=== PATIENT | male | born 1965 | race Caucasian/White ===

== ENCOUNTER 2017-03-29 19:03 | Inpatient (IN) | payer OTHER, MEDICAID ==
[~2017-03-29] VITALS: Ht 180.3 cm; Wt 73.0 kg
[2017-03-29] MEDS ORDERED: FAMOTIDINE/PF INJ 20 MG/2 ML VIAL IV ONE ×2 (19:30→19:48)
[2017-03-29] MEDS ORDERED: IV NS 0.9% 1,000 ML BAG IV ONE (19:30)
[2017-03-29] MEDS ORDERED: MORPHINE SULFATE INJ 2 MG/ML DISP.SYRIN IV ONE ×2 (19:30→21:00)
[2017-03-29] MEDS ORDERED: ONDANSETRON HCL/PF 4 MG/2 ML VIAL IVP ONE (19:30)
[2017-03-29] MEDS ORDERED: MORPHINE SULFATE INJ 2 MG/ML DISP.SYRIN ONE ×3 (19:47→23:48)
[2017-03-29] MEDS ORDERED: ONDANSETRON HCL/PF 4 MG/2 ML VIAL ONE (19:47)
--- NOTE | 2017-03-29 19:50 | NUR ---
RAC 20G IV STARTED. BLOOD DRAWN FOR LABS.
[2017-03-29 19:51] LABS: BASOPHILS % (AUTO) 0.5 % (0.0-2.0); EOSINOPHILS # (AUTO) 0.3 /CMM (0.0-0.7); EOSINOPHILS % (AUTO) 4.1 % (0.0-6.0); HEMATOCRIT 41 % (39-51); HEMOGLOBIN 13.8 g/dL (13.5-17.5); LYMPHOCYTES # (AUTO) 1.6 /CMM (0.8-4.8); LYMPHOCYTES % (AUTO) 23.6 % (20.0-44.0); MEAN CORPUSCULAR HEMOGLOBIN 34 PG (26.0-33.0); MEAN CORPUSCULAR HGB CONC 34 g/dl (31.0-36.0); MEAN CORPUSCULAR VOLUME 100 fL (80-96); MONOCYTES # (AUTO) 0.6 /CMM (0.1-1.30); MONOCYTES % (AUTO) 8.6 % (2.0-12.0); NEUTROPHILS # (AUTO) 4.2 /CMM (1.8-8.9); NEUTROPHILS % (AUTO) 63.2 % (43.0-81.0); PLATELET COUNT (AUTO) 159 /CMM (150-450); RDW COEFFICIENT OF VARIATION 13.2 (11.5-15.0); WHITE BLOOD COUNT (AUTO) 6.7 K/uL (4.3-11.0)
--- NOTE | 2017-03-29 19:53 | NUR ---
MORPHINE, PEPCID AND ZOFRAN AND 1000ML BOLUS GIVEN.
[2017-03-29 19:58] LABS: CALCIUM, SERUM 9.8 mg/dL (8.5-10.1); CARBON DIOXIDE 25 mmol/L (21-32); CHLORIDE 101 mmol/L (98-107); CREATININE 1.2 mg/dL (0.6-1.3); GLUCOSE 138 mg/dL (74-106); POTASSIUM 3.2 mmol/L (3.5-5.1); SODIUM SERUM 138 mmol/L (136-145); UREA NITROGEN, BLOOD 14 mg/dL (7-18)
[2017-03-29 20:02] LABS: INR 0.89 (0.87-1.13); PROTHROMBIN TIME 9.2 SECS (9.5-12.7)
[2017-03-29 20:05] LABS: ALANINE AMINOTRANSFERASE 177 U/L (12-78); ALBUMIN 4.1 g/dL (3.4-5.0); ALKALINE PHOSPHATASE 65 U/L (46-116); ASPARTATE AMINOTRANSFERASE 198 U/L (15-37); BILIRUBIN,DIRECT 0.2 mg/dL (0.0-0.2); BILIRUBIN,TOTAL 0.6 mg/dL (0.2-1.0); LIPASE 6430 U/L (73-393); TOTAL PROTEIN, SERUM 7.5 g/dL (6.4-8.2)
[2017-03-29 20:06] LABS: TROPONIN I < 0.017 ng/mL (0.00-0.056)
--- NOTE | 2017-03-29 20:33 | NUR ---
PT RETURNED FROM CT.
--- NOTE | 2017-03-29 20:37 | NUR ---
PT C/O OF 9/10 ABDOMINAL PAIN. LAST PAIN MEDS WERE NOT EFFECTIVE. PT GIVEN 4MG MORPHINE IVP.
--- NOTE | 2017-03-29 20:44 | NUR ---
CALLED [facility] ITS DR. ZHAO
[2017-03-29] MEDS ORDERED: POTASSIUM CL. PREMIX PERIPHER. 50 ML ONE (21:04)
[2017-03-29] MEDS: POTASSIUM CL. PREMIX PERIPHER. 50 ML IV SCH (21:09)
--- NOTE | 2017-03-29 21:10 | NUR ---
KCL IVPB GIVEN PER MD ORDERS. KCL INFUSING RIGHT AC 20G. PATIENT WILL BE ADMITTED TO ROOM 304-1.
[2017-03-29] MEDS ORDERED: IV D5/0.45 NACL 1,000 ML IV PRN (21:25)
[2017-03-29] MEDS ORDERED: ENAL1TAB10 PO (21:27)
[2017-03-29] MEDS ORDERED: OMEP10CA4 PO (21:27)
[2017-03-29] MEDS ORDERED: ALPR1TAB2 PO (21:27)
[2017-03-29] MEDS ORDERED: ZOLPIDEM TARTRATE 5 MG TABLET PO PRN ×2 (21:30→21:45)
[2017-03-29] MEDS ORDERED: LORAZEPAM INJ 2 MG/ML VIAL IV PRN ×2 (21:30→21:45)
[2017-03-29] MEDS ORDERED: ACETAMINOPHEN 325 MG TABLET PO PRN ×2 (21:30→21:45)
[2017-03-29] MEDS ORDERED: MORPHINE SULFATE INJ 2 MG/ML DISP.SYRIN IV PRN (21:30)
[2017-03-29] MEDS ORDERED: PANTOPRAZOLE 40 MG TABLET.DR PO SCH ×2 (21:30→21:45)
[2017-03-29] MEDS ORDERED: Thiamine 100 MG in IV D5W 50 ML IV SCH ×2 (21:30→21:45)
[2017-03-29] MEDS ORDERED: Z GUARD REMEDY 2 OZ OINT TP PRN ×2 (21:30→21:45)
[2017-03-29] MEDS ORDERED: HYDROCODONE/APAP 5/325MG 1 EACH TABLET PO PRN ×2 (21:30→21:45)
[2017-03-29] MEDS ORDERED: MAG HYDROX/AL HYDROX/SIMETH 30 ML UDC PO PRN ×2 (21:30→21:45)
[2017-03-29] MEDS ORDERED: ENOXAPARIN SODIUM 40 MG/0.4 ML DISP.SYRIN SQ SCH ×2 (21:30→21:45)
[2017-03-29] MEDS ORDERED: MAGNESIUM HYDROXIDE 30 ML UDC PO PRN ×2 (21:30→21:45)
[2017-03-29] MEDS ORDERED: ONDANSETRON HCL/PF 4 MG/2 ML VIAL IVP PRN ×2 (21:30→21:45)
[2017-03-29] MEDS ORDERED: Folic acid 1 MG in IV D5W 50 ML IV SCH ×2 (21:30→21:45)
--- NOTE | 2017-03-29 21:44 | NUR ---
TELE/RN RECEIVE PATIENT FROM [facility], PATIENT IS AWAKE, ALERT, ORIENTED, COMFORTABLE, C/O MILD, TOLERABLE ABDOMINAL PAIN , PATIENT DOES NOT WANT PAIN MEDICATION AT THIS TIME. ADMISSION DONE PER PROTOCOL. PATIENT REFUSED SKIN ASSESSMENT. PLAN OF CARE DISCUSSED, VERBALIZED UNDERSTANDING. TAUGHT THE USE OF CALL LIGHT, VERBALIZED UNDERSTANDING. WILL MONITOR.
[2017-03-29 22:00] VITALS: BP 109/69
[2017-03-29] MEDS: IV D5/0.45 NACL 1,000 ML IV PRN (23:36)
[2017-03-29] MEDS ORDERED: PANTOPRAZOLE 40 MG TABLET.DR PO ONE (23:46)
[2017-03-29] MEDS ORDERED: ENOXAPARIN SODIUM 40 MG/0.4 ML DISP.SYRIN SQ ONE (23:47)
[2017-03-30] MEDS: MORPHINE SULFATE INJ 2 MG/ML DISP.SYRIN IV PRN ×2 (00:03→08:10)
[2017-03-30] MEDS: POTASSIUM CL. PREMIX PERIPHER. 50 ML IV SCH ×3 (00:09→02:17)
[2017-03-30 00:10] VITALS: BP 115/73
[2017-03-30] MEDS ORDERED: Folic acid 1 MG/0.2 ML VIAL ONE (00:41)
[2017-03-30] MEDS ORDERED: Thiamine 100 MG/ML VIAL ONE (00:41)
[2017-03-30] MEDS ORDERED: LORAZEPAM INJ 2 MG/ML VIAL ONE (02:12)
--- NOTE | 2017-03-30 02:17 | NUR ---
TELE/RN AGITATION NOTED DUE TO NOT ABLE TO SLEEP, ATIVAN 0.5 MG IVP WAS GIVEN ORDERED. WILL MONITOR.
--- NOTE | 2017-03-30 02:37 | NUR ---
TELE/RN PATIENT IS DOZING INTERMITTENTLY, NO SIGNS OF DISTRESS NOTED. WILL CONTINUE TO MONITOR.
[2017-03-30 03:54] VITALS: BP 109/71
--- NOTE | 2017-03-30 06:49 | NUR ---
TELE/RN SLEEPING, AROUSABLE, APPEAR COMFORTABLE, NO SIGNS OF DISTRESS NOTED, CALL LIGHT IN REACH. ALL NEEDS ATTENDED AT THIS TIME. WILL CONTINUE TO MONITOR.
[2017-03-30 06:52] VITALS: BP 121/83
[2017-03-30] MEDS ORDERED: AMLO5TAB2 PO (07:19)
[2017-03-30] MEDS ORDERED: ATOR10TA PO (07:19)
[2017-03-30] MEDS ORDERED: OMEP20CA10 PO (07:19)
[2017-03-30] MEDS ORDERED: PANTOPRAZOLE 40 MG TABLET.DR PO SCH ×2 (07:30→08:38)
[2017-03-30] MEDS: PANTOPRAZOLE 40 MG TABLET.DR PO SCH (07:30)
[2017-03-30 08:00] VITALS: BP 117/87
--- NOTE | 2017-03-30 08:00 | NUR ---
AUTO LEASING MANAGER PT ALERT AND ORIENTED. RESTING COMFORTABLY. CALL LIGHT WITHIN REACH. BED IN LOW LOCK POSITION. IV RIGHT AC INTACT PATENT. WILL CONTINUE TO MONITOR.
[2017-03-30] MEDS: IV D5/0.45 NACL 1,000 ML IV PRN ×3 (08:05→23:19)
[2017-03-30] MEDS: ALPRAZOLAM 1 MG TABLET PO SCH (09:00)
[2017-03-30] MEDS ORDERED: [UNRECOGNIZED DRUG - OTHER] PO SCH (09:00)
[2017-03-30] MEDS: HYDROCHLOROTHIAZIDE 25 MG TABLET PO SCH (09:00)
[2017-03-30] MEDS ORDERED: HYDROCHLOROTHIAZIDE PO SCH (09:00)
[2017-03-30] MEDS ORDERED: ENALAPRIL PO SCH (09:00)
[2017-03-30] MEDS: ENALAPRIL MALEATE (10 MG) 10 MG TABLET PO SCH (09:00)
[2017-03-30 09:21] LABS: BASOPHILS % (AUTO) 0.3 % (0.0-2.0); EOSINOPHILS # (AUTO) 0.2 /CMM (0.0-0.7); EOSINOPHILS % (AUTO) 3.6 % (0.0-6.0); HEMATOCRIT 35 % (39-51); HEMOGLOBIN 11.5 g/dL (13.5-17.5); LYMPHOCYTES # (AUTO) 1.3 /CMM (0.8-4.8); LYMPHOCYTES % (AUTO) 27.3 % (20.0-44.0); MEAN CORPUSCULAR HEMOGLOBIN 34 PG (26.0-33.0); MEAN CORPUSCULAR HGB CONC 33 g/dl (31.0-36.0); MEAN CORPUSCULAR VOLUME 101 fL (80-96); MONOCYTES # (AUTO) 0.3 /CMM (0.1-1.30); MONOCYTES % (AUTO) 6.2 % (2.0-12.0); NEUTROPHILS # (AUTO) 2.9 /CMM (1.8-8.9); NEUTROPHILS % (AUTO) 62.6 % (43.0-81.0); RDW COEFFICIENT OF VARIATION 13.1 (11.5-15.0); RED BLOOD CELL COUNT(AUTO) 3.41 MIL/uL (4.5-6.0); WHITE BLOOD COUNT (AUTO) 4.6 K/uL (4.3-11.0)
[2017-03-30 09:38] LABS: CREATININE 0.9 mg/dL (0.6-1.3); POTASSIUM 3.8 mmol/L (3.5-5.1)
[2017-03-30 09:54] LABS: PLATELET COUNT (AUTO) 110 /CMM (150-450)
[2017-03-30 10:56] LABS: ALBUMIN 3.6 g/dL (3.4-5.0); BILIRUBIN,DIRECT 0.1 mg/dL (0.0-0.2); BILIRUBIN,TOTAL 0.8 mg/dL (0.2-1.0); TOTAL PROTEIN, SERUM 6.5 g/dL (6.4-8.2)
--- NOTE | 2017-03-30 11:00 | NUR ---
CONTINUOUS IMPROVEMENT INTERN NOTES PATIENT REFUSED ECHOCARDIOGRAM STATING HE HAD ONE RECENTLY AT HIS DOCTORS OFFICE. HE STATES RESULTS WERE NORMAL.
[2017-03-30] MEDS ORDERED: LORAZEPAM INJ 2 MG/ML VIAL IV PRN (15:30)
--- NOTE | 2017-03-30 19:20 | NUR ---
DATA MANAGER NOTES PATIENT IN BED RESTING NO SOB OR ACUTE DISTRESS NOTED. ALL DUE MEDICATIONS ADMINISTERED, ALL NEEDS MET. PERIPHERAL IV ON RIGHT AC INTACT PATENT. PATIENT DENIES ANY PAIN. TOLERATED CLEAR LIQUID DIET WELL. WILL ENDORSE TO PM SHIFT BELA.
--- NOTE | 2017-03-30 19:30 | NUR ---
PURCHASING AGENT OPENING NOTES: PATIENT IN BED, AOX4, ON ROOM AIR, BREATHING EVEN AND UNLABORED. BREATH SOUNDS LEAR TO AUSCULTATION. ON TELE MONITORING : SR AT RATE OF 70S. PIV OVER RAC G20 INTACT AND INFUSING WELL WITH D51/2 NS RUNNING AT 150 ML/HR. PROVIDED FOR COMFORT AND SAFETY. BED IN LOWEST AND LOCKED POSITION, SIDERAILS UPX3. WILL CONT TO MONITOR.
[2017-03-30 20:00] VITALS: BP 155/89
[2017-03-30 20:07] VITALS: BP 155/89
[2017-03-30] MEDS ORDERED: ENOXAPARIN SODIUM 40 MG/0.4 ML DISP.SYRIN SQ SCH (22:00)
[2017-03-31] VITALS: BP 134/91
[2017-03-31 04:00] VITALS: BP 127/90
[2017-03-31] MEDS ORDERED: Thiamine 100 MG in IV D5W 50 ML IV SCH (05:00)
[2017-03-31] MEDS ORDERED: Folic acid 1 MG in IV D5W 50 ML IV SCH (06:00)
[2017-03-31 06:26] LABS: BASOPHILS % (AUTO) 0.3 % (0.0-2.0); EOSINOPHILS # (AUTO) 0.2 /CMM (0.0-0.7); EOSINOPHILS % (AUTO) 4.3 % (0.0-6.0); HEMATOCRIT 36 % (39-51); HEMOGLOBIN 12.1 g/dL (13.5-17.5); LYMPHOCYTES # (AUTO) 0.8 /CMM (0.8-4.8); LYMPHOCYTES % (AUTO) 17.6 % (20.0-44.0); MEAN CORPUSCULAR HEMOGLOBIN 34 PG (26.0-33.0); MEAN CORPUSCULAR HGB CONC 34 g/dl (31.0-36.0); MEAN CORPUSCULAR VOLUME 100 fL (80-96); MONOCYTES # (AUTO) 0.2 /CMM (0.1-1.30); MONOCYTES % (AUTO) 4.4 % (2.0-12.0); NEUTROPHILS # (AUTO) 3.2 /CMM (1.8-8.9); NEUTROPHILS % (AUTO) 73.4 % (43.0-81.0); PLATELET COUNT (AUTO) 93 /CMM (150-450); RDW COEFFICIENT OF VARIATION 12.8 (11.5-15.0); WHITE BLOOD COUNT (AUTO) 4.4 K/uL (4.3-11.0)
[2017-03-31 06:56] LABS: ALBUMIN 3.5 g/dL (3.4-5.0); BILIRUBIN,DIRECT 0.3 mg/dL (0.0-0.2); BILIRUBIN,TOTAL 1.4 mg/dL (0.2-1.0); CALCIUM, SERUM 9.6 mg/dL (8.5-10.1); CREATININE 0.7 mg/dL (0.6-1.3); POTASSIUM 3.7 mmol/L (3.5-5.1); TOTAL PROTEIN, SERUM 6.7 g/dL (6.4-8.2)
--- NOTE | 2017-03-31 07:00 | NUR ---
SESSIONS CLERK CLOSING NOTES: PATIENT IN BED, AOX4, ON ROOM AIR, BREATHING EVEN AND UNLABORED. PIV OVER RAC G20 INTACT AND PATENT, INFUSING WELL WITH D51/2 NS RUNNING AT 150 ML/HR. APPEARS CALM AND IN NO DISTRESS. NO ACUTE CHANGE IN CONDITION NOTED THROUGH SHIFT. DUE MEDS GIVEN. PROVIDED FOR COMFORT AND SAFETY. ENDORSED TO AM RN FOR BELA.
--- NOTE | 2017-03-31 07:30 | NUR ---
RN NOTES RECEIVED PT. PT IN BED RESTING. A/OX4. NO S/S OF DISTRESS OR SOB. NO C/O PAIN AT THIS TIME. PT IS ON ROOM AIR, O2 SAT ABOVE 95%. TELE MONITOR READING SR CURRENTLY. PT IS ON A CLEAR LIQUID DIET. SAFETY MEASURES IN PLACE, CALL LIGHT WITHIN REACH. WILL CONTINUE TO MONITOR.
[2017-03-31 08:06] VITALS: BP 121/88
[2017-03-31] MEDS: ENALAPRIL MALEATE (10 MG) 10 MG TABLET PO SCH (09:00)
[2017-03-31] MEDS: ALPRAZOLAM 1 MG TABLET PO SCH (09:17)
[2017-03-31 09:18] VITALS: BP 121/88
[2017-03-31] MEDS: PANTOPRAZOLE 40 MG TABLET.DR PO SCH (09:18)
[2017-03-31] MEDS: HYDROCHLOROTHIAZIDE 25 MG TABLET PO SCH (09:18)
[2017-03-31 10:15] LABS: BAND % (MANUAL) 1 % (0.0-5.0); EOSINOPHILS % (MANUAL) 1 % (0-4); LYMPHOCYTES % (MANUAL) 18 % (16-48); MONOCYTES % (MANUAL) 3 % (0-11.0); NEUTROPHILS % (MANUAL) 77 (42-76)
--- NOTE | 2017-03-31 11:48 | NUR ---
DISCHARGE NOTE PT LEFT AGAINST MEDICAL ADVICE. PT SPOKE WITH BRANDON REN REGARDING HEALTH RISKS ASSOCIATED WITH LEAVING AMA. PT VERBALIZES UNDERSTANDING OF RISKS HOWEVER HAS STILL DECIDED TO LEAVE. PT IS STABLE AT THE MOMENT, NO S/S OF RESPIRATORY DISTRESS OR SOB. PT IS ABLE TO AMBULATE WELL WITHOUT ASSISTANCE, DENIES ANY PRESENCE OF DIZZYNESS OR WEAKNESS. AMA FORM SIGNED AND COPIED, BELONGINGS LIST SIGNED AND COPIED. PT LEFT HOSPITAL BY HIMSELF, IN A PRIVATE CAR.
== END 2017-03-31 11:45 | disposition left against medical advice (07) | DRG 440 ==
LOC: ER 19:05 → MED 22:23 → TELE 23:26
PROVIDERS: ADMIT Internal Medicine; ATTEND Internal Medicine
DX: K85.20 Alcohol induced acute pancreatitis without necrosis or infection (principal); I10 Essential (primary) hypertension; K21.9 Gastro-esophageal reflux disease without esophagitis; F41.9 Anxiety disorder, unspecified; E87.6 Hypokalemia; F10.20 Alcohol dependence, uncomplicated; Y90.6 Blood alcohol level of 120-199 mg/100 ml; K80.20 Calculus of gallbladder without cholecystitis without obstruction; F17.210 Nicotine dependence, cigarettes, uncomplicated; R74.0 Nonspecific elevation of levels of transaminase and lactic acid dehydrogenase [LDH]; E80.6 Other disorders of bilirubin metabolism
CPT/HCPCS: 36415; 71010-TC; 71250-TC; 76705-TC; 80048-TC; 80076-TC; 82553-TC; 83690-TC; 84484-TC; 85025-TC; 85730-TC; 87081-TC; A4606; G0480; J1650; J2060; J2270; J2405; J3411; J3480; J3490; J7030; J7060; Z7610

== ENCOUNTER 2018-01-08 11:16 | Emergency (ER) | payer OTHER ==
[~2018-01-08] VITALS: Ht 182.9 cm; Wt 81.6 kg
[~2018-01-08 11:16] MED LIST: ALPR1TAB2 PO; AMLO5TAB7 PO; ATOR10TA PO; ENAL1TAB10 PO; OMEP20CA10 PO
--- NOTE | 2018-01-08 11:20 | NUR ---
Presents to ER c/o n/v/d x 2 days. a/ox 4. breathing even and unlabored. no sob, nad, vitals stable. safety and comfort measures in place. awaiting md orders.
[2018-01-08] MEDS ORDERED: IV NS 0.9% 1,000 ML BAG IV ONE (12:00)
[2018-01-08] MEDS ORDERED: ONDANSETRON HCL/PF 4 MG/2 ML VIAL IVP ONE (12:00)
[2018-01-08] MEDS ORDERED: ONDANSETRON HCL/PF 4 MG/2 ML VIAL ONE (12:04)
--- NOTE | 2018-01-08 12:10 | NUR ---
NEW IV STARTED ON RAC, 18G. BLOOD DRAWN AND SENT TO LAB.
[2018-01-08 12:13] LABS: BASOPHILS % (AUTO) 0.7 % (0.0-2.0); HEMATOCRIT 37 % (39-51); HEMOGLOBIN 12.7 g/dL (13.5-17.5); LYMPHOCYTES # (AUTO) 0.8 /CMM (0.8-4.8); LYMPHOCYTES % (AUTO) 25.4 % (20.0-44.0); MEAN CORPUSCULAR HGB CONC 34 g/dl (31.0-36.0); MEAN CORPUSCULAR VOLUME 101 fL (80-96); MONOCYTES # (AUTO) 0.3 /CMM (0.1-1.30); MONOCYTES % (AUTO) 10.9 % (2.0-12.0); PLATELET COUNT (AUTO) 116 /CMM (150-450); RDW COEFFICIENT OF VARIATION 13.1 (11.5-15.0); RED BLOOD CELL COUNT(AUTO) 3.68 MIL/uL (4.5-6.0); WHITE BLOOD COUNT (AUTO) 3.2 K/uL (4.3-11.0)
[2018-01-08 12:21] LABS: CALCIUM, SERUM 8.9 mg/dL (8.5-10.1); CREATININE 0.8 mg/dL (0.6-1.3); POTASSIUM 3.2 mmol/L (3.5-5.1)
[2018-01-08 12:27] LABS: ALBUMIN 3.5 g/dL (3.4-5.0); BILIRUBIN,DIRECT 0.5 mg/dL (0.0-0.2); BILIRUBIN,TOTAL 1.4 mg/dL (0.2-1.0); TOTAL PROTEIN, SERUM 6.8 g/dL (6.4-8.2)
--- NOTE | 2018-01-08 12:32 | NUR ---
URINE OBTAINED AND SENT TO LAB.
[2018-01-08 12:37] LABS: APPEARANCE,URINE Slightly Cloudy (CLEAR); BILIRUBIN,URINE MODERATE (NEGATIVE); BLOOD, URINE Trace-lysed Ery/uL (NEGATIVE); KETONES,URINE 40 (NEGATIVE); LEUKOCYTE ESTERASE ,URINE Negative (NEGATIVE); NITRITE, URINE Negative (NEGATIVE); PROTEIN,URINE 30 mg/dl (NEGATIVE); UGLUCOSE Negative (NEGATIVE)
--- NOTE | 2018-01-08 12:38 | NUR ---
CALLED FOR FOOD TRAY
[2018-01-08 12:44] LABS: COLOR,URINE Dark Yellow (YELLOW)
[2018-01-08 12:46] LABS: BACTERIA,URINE None seen /HPF (None Seen); MUCUS,URINE Moderate /LPF (None Seen); SQUAMOUS EPITHELIAL CELL,UR Few /HPF (None Seen)
[2018-01-08] MEDS ORDERED: POTASSIUM CHLORIDE 20 MEQ TAB.PRT.SR PO ONE ×2 (13:00→13:01)
[2018-01-08 13:34] VITALS: BP 158/92
--- NOTE | 2018-01-08 13:36 | NUR ---
IV removed. Catheter intact and site benign. Pressure and 4x4 applied to site. No bleeding noted. Patient discharged to home in stable condition. Written and verbal after care instructions given. Patient verbalizes understanding of instruction.
== END 2018-01-08 13:35 | disposition home or self-care (01) ==
LOC: ER 11:17
DX: R11.2 Nausea with vomiting, unspecified (principal); R10.9 Unspecified abdominal pain; R19.7 Diarrhea, unspecified; E87.6 Hypokalemia; I10 Essential (primary) hypertension; F41.9 Anxiety disorder, unspecified; E86.0 Dehydration; F17.200 Nicotine dependence, unspecified, uncomplicated; F10.10 Alcohol abuse, uncomplicated; Y90.9 Presence of alcohol in blood, level not specified
CPT/HCPCS: 36415; 80048; 80076; 81001; 83690; 85025; 96361; 96374; 99284; A4606; J2405; J7030; Z7610; 81000-TC

== ENCOUNTER 2018-02-24 09:56 | Emergency (ER) | payer OTHER ==
[~2018-02-24] VITALS: Ht 180.3 cm; Wt 81.6 kg
[~2018-02-24 09:56] MED LIST changes: +AMLO5TAB2 PO; -AMLO5TAB7 PO
--- NOTE | 2018-02-24 10:03 | NUR ---
PT AMBULATORY TO ER BED 03. PT IS C/O LLQ ABDOMINAL PAIN W/ NAUSEA X 5 DAYS NOW. PT GOWNED AND PLACED ON MONITOR. AFEBRILE BIOINFORMATICS TECHNICIAN. AWAITING MD STEINBERG.
--- NOTE | 2018-02-24 10:06 | NUR ---
DR CATALAN AT BEDSIDE FOR EVAL.
[2018-02-24] MEDS ORDERED: ONDANSETRON HCL/PF 4 MG/2 ML VIAL ONE ×2 (10:10→10:28)
[2018-02-24] MEDS ORDERED: MORPHINE SULFATE INJ 2 MG/ML DISP.SYRIN ONE ×2 (10:10→10:28)
--- NOTE | 2018-02-24 10:24 | NUR ---
Line started on R AC G 18, blood drawn from line and sent to lab Pt medicated as ordered by dr Darden
[2018-02-24] MEDS ORDERED: ONDANSETRON HCL/PF 4 MG/2 ML VIAL IVP ONE (10:30)
[2018-02-24] MEDS ORDERED: IV NS 0.9% 1,000 ML BAG IV ONE (10:30)
[2018-02-24] MEDS ORDERED: MORPHINE SULFATE INJ 2 MG/ML DISP.SYRIN IV ONE (10:30)
[2018-02-24 10:48] LABS: CREATININE 0.8 mg/dL (0.6-1.3)
--- NOTE | 2018-02-24 10:49 | NUR ---
PT TO RADIOLOGY FOR ABDOMINAL CT SCAN VIA WHEELCHAIR.
[2018-02-24 10:51] LABS: BASOPHILS % (AUTO) 0.8 % (0.0-2.0); EOSINOPHILS % (AUTO) 3.1 % (0.0-6.0); HEMATOCRIT 40 % (39-51); HEMOGLOBIN 13.5 g/dL (13.5-17.5); LYMPHOCYTES # (AUTO) 0.3 /CMM (0.8-4.8); MEAN CORPUSCULAR HEMOGLOBIN 34 PG (26.0-33.0); MEAN CORPUSCULAR HGB CONC 34 g/dl (31.0-36.0); MEAN CORPUSCULAR VOLUME 100 fL (80-96); MONOCYTES # (AUTO) 0.4 /CMM (0.1-1.30); MONOCYTES % (AUTO) 12.2 % (2.0-12.0); NEUTROPHILS # (AUTO) 2.1 /CMM (1.8-8.9); NEUTROPHILS % (AUTO) 72.9 % (43.0-81.0); RDW COEFFICIENT OF VARIATION 13.6 (11.5-15.0); RED BLOOD CELL COUNT(AUTO) 3.99 MIL/uL (4.5-6.0); WHITE BLOOD COUNT (AUTO) 2.9 K/uL (4.3-11.0)
[2018-02-24 10:52] LABS: PLATELET COUNT (AUTO) 63 /CMM (150-450)
[2018-02-24 10:55] LABS: ALBUMIN 3.6 g/dL (3.4-5.0); BILIRUBIN,DIRECT 0.6 mg/dL (0.0-0.2); BILIRUBIN,TOTAL 1.9 mg/dL (0.2-1.0); TOTAL PROTEIN, SERUM 7.3 g/dL (6.4-8.2)
[2018-02-24 10:56] LABS: INR 1.04 (0.85-1.15)
[2018-02-24 11:24] LABS: BAND % (MANUAL) 1 % (0.0-5.0); EOSINOPHILS % (MANUAL) 5 % (0-4); LYMPHOCYTES % (MANUAL) 12 % (16-48); MONOCYTES % (MANUAL) 12 % (0-11.0); NEUTROPHILS % (MANUAL) 70 (42-76)
[2018-02-24] MEDS ORDERED: PIPERACILLIN /TAZOBACTAM 3.375 G in IV D5W 50 ML IV ONE (11:30)
--- NOTE | 2018-02-24 11:57 | NUR ---
Patient discharged to home in stable condition. Written and verbal after care instructions given. Patient verbalizes understanding of instruction.IV removed. Catheter intact and site benign. Pressure and 4x4 applied to site. No bleeding noted.
[2018-02-24 11:58] VITALS: BP 138/84
== END 2018-02-24 11:59 | disposition home or self-care (01) ==
LOC: ER 09:57
DX: K57.92 Diverticulitis of intestine, part unspecified, without perforation or abscess without bleeding (principal); I10 Essential (primary) hypertension; F41.9 Anxiety disorder, unspecified; F17.200 Nicotine dependence, unspecified, uncomplicated; Z79.899 Other long term (current) drug therapy
CPT/HCPCS: 36415; 74176; 80048; 80076; 83690; 85025; 85730; 96361; 96365; 96375; 99285; A4606; J2270; J2405; J2543; J7030 ×2; J7060; Z7610

== ENCOUNTER 2018-10-15 02:23 | Emergency (ER) | payer MEDICAID, OTHER ==
[~2018-10-15] VITALS: Ht 182.9 cm; Wt 81.6 kg
[~2018-10-15 02:23] MED LIST changes: -AMLO5TAB2 PO; +AMLO5TAB9 PO
--- NOTE | 2018-10-15 02:30 | NUR ---
PT BIBS. C/O "HAVING SHORTNESS OF BREATH, AND CHEST PAIN EVER SINCE I FELL 3 DAYS AGO" PAIN NON RADIATING. PT AOX4. AMBULATORY W,STEADY GAIT. -ACUTE DISTRESS AT THIS TIME.
[2018-10-15] MEDS ORDERED: LORAZEPAM INJ 2 MG/ML VIAL ONE (02:48)
[2018-10-15] MEDS ORDERED: LORAZEPAM INJ 2 MG/ML VIAL IV ONE (03:00)
[2018-10-15] MEDS ORDERED: IV NS 0.9% 1,000 ML BAG IV ONE (03:00)
[2018-10-15 03:12] LABS: CARBON DIOXIDE 30 mmol/L (21-32); CHLORIDE 101 mmol/L (98-107); CREATININE 0.9 mg/dL (0.6-1.3); EOSINOPHILS % (AUTO) 3.3 % (0.0-6.0); GLUCOSE 88 mg/dL (74-106); HEMATOCRIT 39 % (39-51); HEMOGLOBIN 13.4 g/dL (13.5-17.5); LYMPHOCYTES # (AUTO) 0.6 /CMM (0.8-4.8); LYMPHOCYTES % (AUTO) 16.8 % (20.0-44.0); MEAN CORPUSCULAR HGB CONC 34 g/dl (31.0-36.0); MEAN CORPUSCULAR VOLUME 103 fL (80-96); MONOCYTES # (AUTO) 0.3 /CMM (0.1-1.30); MONOCYTES % (AUTO) 8.8 % (2.0-12.0); NEUTROPHILS # (AUTO) 2.6 /CMM (1.8-8.9); NEUTROPHILS % (AUTO) 70.1 % (43.0-81.0); PLATELET COUNT (AUTO) 68 /CMM (150-450); POTASSIUM 3.3 mmol/L (3.5-5.1); RED BLOOD CELL COUNT(AUTO) 3.81 MIL/uL (4.5-6.0); SODIUM SERUM 142 mmol/L (136-145); UREA NITROGEN, BLOOD 8 mg/dL (7-18); WHITE BLOOD COUNT (AUTO) 3.7 K/uL (4.3-11.0)
[2018-10-15 03:18] LABS: ALANINE AMINOTRANSFERASE 89 U/L (12-78); ALBUMIN 3.8 g/dL (3.4-5.0); ALKALINE PHOSPHATASE 74 U/L (46-116); ASPARTATE AMINOTRANSFERASE 99 U/L (15-37); BILIRUBIN,DIRECT 0.6 mg/dL (0.0-0.2); BILIRUBIN,TOTAL 2.4 mg/dL (0.2-1.0); TOTAL PROTEIN, SERUM 7.4 g/dL (6.4-8.2)
[2018-10-15] MEDS ORDERED: IOHEXOL-350 100 ML VIAL IV ONE (03:28)
[2018-10-15] MEDS ORDERED: MORPHINE SULFATE INJ 2 MG/ML DISP.SYRIN IV ONE (03:30)
[2018-10-15] MEDS ORDERED: MORPHINE SULFATE INJ 4 MG/ML DISP.SYRIN ONE (03:50)
[2018-10-15] MEDS ORDERED: ONDANSETRON HCL/PF 4 MG/2 ML VIAL IV ONE (04:30)
[2018-10-15] MEDS ORDERED: ONDANSETRON HCL/PF 4 MG/2 ML VIAL ONE (04:37)
[2018-10-15 04:51] VITALS: BP 120/68
[2018-10-15 05:41] LABS: EOSINOPHILS % (MANUAL) 2 % (0-4); LYMPHOCYTES % (MANUAL) 17 % (16-48); MONOCYTES % (MANUAL) 6 % (0-11.0); NEUTROPHILS % (MANUAL) 75 (42-76)
== END 2018-10-15 04:53 | disposition home or self-care (01) ==
LOC: ER 02:25
DX: R07.89 Other chest pain (principal); F41.9 Anxiety disorder, unspecified; S30.1XXA Contusion of abdominal wall, initial encounter; I10 Essential (primary) hypertension; F17.200 Nicotine dependence, unspecified, uncomplicated; Z79.899 Other long term (current) drug therapy; W01.0XXA Fall on same level from slipping, tripping and stumbling without subsequent striking against object, initial encounter; Y93.89 Activity, other specified; Y92.89 Other specified places as the place of occurrence of the external cause; Y99.8 Other external cause status
CPT/HCPCS: 36415; 71045; 71275; 80048; 80076; 83690; 84484; 85025; 85730; 93005; 96361; 96374; 96375; 99284; J2060; J2270; J2405; J7030; Q9967

== ENCOUNTER 2018-11-02 07:45 | Emergency (ER) | payer MEDICAID, OTHER ==
[~2018-11-02] VITALS: Ht 182.9 cm; Wt 78.0 kg
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
--- NOTE | 2018-11-02 07:55 | NUR ---
DR JOHNSON AT BEDSIDE
[2018-11-02] MEDS ORDERED: LORAZEPAM 1 MG TABLET PO ONE ×2 (08:00→11:30)
[2018-11-02] MEDS ORDERED: ASPIRIN 325 MG TABLET PO ONE (08:00)
[2018-11-02] MEDS ORDERED: HYDROCODONE/APAP 10/325MG 1 EA TABLET PO ONE (08:00)
--- NOTE | 2018-11-02 08:06 | NUR ---
DUPLICATE ORDER. SECOND ONE TO BE DONE AFTER MEDS GIVEN
[2018-11-02] MEDS ORDERED: ASPIRIN 325 MG TABLET ONE (08:10)
[2018-11-02] MEDS ORDERED: HYDROCODONE/APAP 10/325MG 1 EA TABLET ONE (08:10)
[2018-11-02] MEDS ORDERED: LORAZEPAM 1 MG TABLET ONE ×2 (08:10→11:29)
[2018-11-02 08:17] LABS: BASOPHILS # (AUTO) 0.2 /CMM (0.0-0.2); EOSINOPHILS % (AUTO) 3.3 % (0.0-6.0); HEMATOCRIT 38 % (39-51); HEMOGLOBIN 13.3 g/dL (13.5-17.5); LYMPHOCYTES # (AUTO) 0.6 /CMM (0.8-4.8); LYMPHOCYTES % (AUTO) 14.6 % (20.0-44.0); MEAN CORPUSCULAR HGB CONC 35 g/dl (31.0-36.0); MEAN CORPUSCULAR VOLUME 103 fL (80-96); MONOCYTES # (AUTO) 0.4 /CMM (0.1-1.30); MONOCYTES % (AUTO) 8.7 % (2.0-12.0); NEUTROPHILS # (AUTO) 2.9 /CMM (1.8-8.9); NEUTROPHILS % (AUTO) 68.1 % (43.0-81.0); PLATELET COUNT (AUTO) 128 /CMM (150-450); RED BLOOD CELL COUNT(AUTO) 3.72 MIL/uL (4.5-6.0); WHITE BLOOD COUNT (AUTO) 4.2 K/uL (4.3-11.0)
[2018-11-02 08:18] LABS: BASOPHILS % (AUTO) 5.3 % (0.0-2.0)
--- NOTE | 2018-11-02 08:27 | NUR ---
COURT BAILIFF OR SHERIFF AT BEDSIDE
[2018-11-02 08:31] LABS: CALCIUM, SERUM 9.1 mg/dL (8.5-10.1); CARBON DIOXIDE 30 mmol/L (21-32); CHLORIDE 101 mmol/L (98-107); CREATININE 0.8 mg/dL (0.6-1.3); GLUCOSE 94 mg/dL (74-106); POTASSIUM 3.1 mmol/L (3.5-5.1); SODIUM SERUM 141 mmol/L (136-145); UREA NITROGEN, BLOOD 12 mg/dL (7-18)
[2018-11-02] MEDS ORDERED: TRAMADOL HCL 50 MG TABLET PO ONE (09:30)
[2018-11-02] MEDS ORDERED: TRAMADOL HCL 50 MG TABLET ONE (09:30)
--- NOTE | 2018-11-02 11:48 | NUR ---
IV removed. Catheter intact and site benign. Pressure and 4x4 applied to site. No bleeding noted.Patient discharged to home in stable condition. Written and verbal after care instructions given. Patient verbalizes understanding of instruction.
[2018-11-02 11:55] VITALS: BP 161/92
== END 2018-11-02 11:56 | disposition home or self-care (01) ==
LOC: ER 07:52
DX: F41.9 Anxiety disorder, unspecified (principal); R07.89 Other chest pain; I10 Essential (primary) hypertension; F10.10 Alcohol abuse, uncomplicated; F17.200 Nicotine dependence, unspecified, uncomplicated; Y90.9 Presence of alcohol in blood, level not specified
CPT/HCPCS: 36415; 71045-TC; 80048-TC; 84484-TC; 85025-TC

== ENCOUNTER 2018-12-23 09:20 | Emergency (ER) | payer OTHER ==
[~2018-12-23] VITALS: Ht 180.3 cm; Wt 74.4 kg
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
--- NOTE | 2018-12-23 09:37 | NUR ---
DR JOHNSON AT BEDSIDE
[2018-12-23 09:53] LABS: BASOPHILS % (AUTO) 1.1 % (0.0-2.0); EOSINOPHILS % (AUTO) 1.2 % (0.0-6.0); HEMATOCRIT 40 % (39-51); LYMPHOCYTES # (AUTO) 0.6 /CMM (0.8-4.8); LYMPHOCYTES % (AUTO) 16.9 % (20.0-44.0); MEAN CORPUSCULAR HGB CONC 35 g/dl (31.0-36.0); MEAN CORPUSCULAR VOLUME 104 fL (80-96); MONOCYTES # (AUTO) 0.4 /CMM (0.1-1.30); MONOCYTES % (AUTO) 10.6 % (2.0-12.0); NEUTROPHILS # (AUTO) 2.5 /CMM (1.8-8.9); NEUTROPHILS % (AUTO) 70.2 % (43.0-81.0); PLATELET COUNT (AUTO) 73 /CMM (150-450); RED BLOOD CELL COUNT(AUTO) 3.87 MIL/uL (4.5-6.0); WHITE BLOOD COUNT (AUTO) 3.6 K/uL (4.3-11.0)
[2018-12-23] MEDS ORDERED: LORAZEPAM INJ 2 MG/ML VIAL ONE (09:56)
[2018-12-23 09:57] LABS: CALCIUM, SERUM 10.3 mg/dL (8.5-10.1); CARBON DIOXIDE 24 mmol/L (21-32); CHLORIDE 97 mmol/L (98-107); CREATININE 0.9 mg/dL (0.6-1.3); GLUCOSE 90 mg/dL (74-106); POTASSIUM 3.6 mmol/L (3.5-5.1); SODIUM SERUM 138 mmol/L (136-145); UREA NITROGEN, BLOOD 13 mg/dL (7-18)
[2018-12-23] MEDS ORDERED: IV NS 0.9% 1,000 ML BAG IV ONE (10:00)
[2018-12-23] MEDS ORDERED: LORAZEPAM INJ 2 MG/ML VIAL IV ONE (10:00)
--- NOTE | 2018-12-23 10:05 | NUR ---
WHEELED OUT VIA [facility] FOR CT SCAN AND XRAY
[2018-12-23 10:11] LABS: ALANINE AMINOTRANSFERASE 153 U/L (12-78); ALBUMIN 4.4 g/dL (3.4-5.0); ALCOHOL, BLOOD < 3 mg/dL (0-0); ALKALINE PHOSPHATASE 82 U/L (46-116); ASPARTATE AMINOTRANSFERASE 164 U/L (15-37); BILIRUBIN,DIRECT 0.6 mg/dL (0.0-0.2); BILIRUBIN,TOTAL 2.4 mg/dL (0.2-1.0); TOTAL PROTEIN, SERUM 8.4 g/dL (6.4-8.2)
[2018-12-23 10:12] LABS: ACETAMINOPHEN 0 ug/ml (10-30); SALICYLATE < 2.8 mg/dL (2.8-20.0)
[2018-12-23 10:50] LABS: BAND % (MANUAL) 1 % (0.0-5.0); LYMPHOCYTES % (MANUAL) 14 % (16-48); MONOCYTES % (MANUAL) 10 % (0-11.0); NEUTROPHILS % (MANUAL) 75 (42-76)
--- NOTE | 2018-12-23 11:00 | NUR ---
PT NOT ABLE TO PROVIDE URINE SAMPLE. MADE AWARE
[2018-12-23 11:24] VITALS: BP 149/109
== END 2018-12-23 11:25 | disposition home or self-care (01) ==
LOC: ER 09:22
DX: R25.1 Tremor, unspecified (principal); R55 Syncope and collapse; I10 Essential (primary) hypertension; F41.9 Anxiety disorder, unspecified; F17.200 Nicotine dependence, unspecified, uncomplicated; Z79.899 Other long term (current) drug therapy
CPT/HCPCS: 36415; 70450; 71045; 80048; 80076; 80307; 80329; 82962; 85025; 93005; 96361; 96374; 99284; G0480; J2060; J7030